=== PATIENT | male | born 1990 | race Two or more races ===

== ENCOUNTER 2019-03-22 05:55 | Emergency (ER) | payer OTHER ==
[~2019-03-22] VITALS: Ht 182.9 cm; Wt 72.6 kg
[2019-03-22] MEDS ORDERED: IPRAT-ALBUT 0.5-3 ML IH (11:10)
[2019-03-22] MEDS ORDERED: TUSNEL LIQUID178 ML PO (11:10)
[2019-03-22] MEDS ORDERED: MEDROLPACK PO (11:10)
[2019-03-22] MEDS ORDERED: PROAIR RESPICL90 MCG IH (11:10)
[2019-03-22] MEDS ORDERED: ZITHROMAX500 MG PO (11:10)
== END 2019-03-22 11:16 | disposition home or self-care (01) ==
LOC: ER 05:55
DX: J06.9 Acute upper respiratory infection, unspecified (principal); J45.909 Unspecified asthma, uncomplicated